=== PATIENT | female | born 2000 | race Two or more races ===

== ENCOUNTER 2025-04-30 10:45 | Observation (INO) | payer MEDICAID, SELFPAY ==
[2025-04-30] VITALS (11 sets, daily range): BP systolic 109–121; BP diastolic 56–65; PULSE 83–120; RESP 16–98; TEMP 37; BMI 37.5
[2025-04-30] MEDS: RINGERS LACTATED 1000 ML 1,000 ML 999 ML IV (11:40)
[2025-04-30 11:56] LABS: Collection Type, Urine Clean Catch
[2025-04-30 12:11] LABS: Basophils # (Auto) 0.0 Thou/mm3 (0.0-0.2); Basophils % (Auto) 1 % (0-2.5); Eosinophils # (Auto) 0.0 Thou/mm3 (0.0-0.5); Eosinophils % (Auto) 1 % (0-10); Hematocrit 35.1 % (36.0-46.0); Hemoglobin 11.6 g/dL (12.0-16.0); Immature Granulocytes Auto 0.03 Thou/mm3 (0.00-0.00); Lymphocytes # (Auto) 1.6 Thou/mm3 (1.0-4.8); Lymphocytes % (Auto) 27 % (10-50); Mean Corpuscular HGB Conc 33.0 g/dl (31.0-37.0); Mean Corpuscular Hemoglobin 27.9 pg (25.0-35.0); Mean Corpuscular Volume 84 fL (80-100); Monocytes # (Auto) 0.5 Thou/mm3 (0.0-0.8); Monocytes % (Auto) 8 % (0-12); Neutrophils # (Auto) 3.9 Thou/mm3 (1.8-7.7); Neutrophils % (Auto) 64 % (37-80); Nucleated Red Blood Cell # 0.00 Thou/mm3 (0.00-0.00); Nucleated Red Blood Cell % 0 /100 WBC (0); Platelet Count 271 Thou/mm3 (140-440); RDW Standard Deviation 42.0 fL (36.4-46.3); Red Blood Count 4.16 Miln/mm3 (4.00-5.20); White Blood Count 6.1 Thou/mm3 (3.6-11.0)
[2025-04-30 12:21] LABS: Bacteria,Urine Rare; Bilirubin,Urine Negative (Negative); Blood,Urine Negative (Negative); Clarity,Urine Clear (Clear/Hazy); Color,Urine Lt-Yellow (Lt Yel-Yel); Glucose, Urine Negative (Negative); Ketones,Urine Negative (Negative); Leukocyte Esterase,Urine Negative (Negative); Nitrite,Urine Negative (Negative); PH,Urine 6.5 (5.0-7.0); Protein,Urine Negative (Neg - Trace); RBC,Urine 1 /hpf (0-3); Specific Gravity,Urine 1.010 (1.001-1.035); Squamous Epithelial Cell,Urine 1 /hpf (0-5); Urobilinogen,Urine Negative mg/dL (0.0-1.0); WBC,Urine 1 /hpf (0-5)
[2025-04-30 12:23] LABS: Creatinine,Random Urine 52 mg/dL (30-125); Protein Total, Random Urine 12 mg/dL (1-14)
[2025-04-30 12:36] LABS: INR 0.9 (0.9-1.3); Partial Thromboplastin Time 26.7 Seconds (22.0-36.0); Prothrombin Time 10.1 Seconds (9.0-12.2)
[2025-04-30 12:38] LABS: Alanine Aminotransferase 25 U/L (10-49); Albumin, Serum 4.1 gm/dL (3.5-5.0); Albumin/Globulin Ratio 1.6 (1.2-2.2); Alkaline Phosphatase 166 U/L (46-116); Anion Gap 13 (7-16); Aspartate Amino Transferase 22 U/L (0-34); BUN/Creatinine Ratio 10 Ratio (12-20); Bilirubin,Total 0.4 mg/dL (0.3-1.2); Blood Urea Nitrogen 5 mg/dL (9-23); Calcium 8.8 mg/dL (8.3-10.6); Calcium (Corrected) 8.8 mg/dL (8.5-10.1); Carbon Dioxide 22.1 mMol/L (20.0-31.0); Chloride 105 mMol/L (98-107); Creatinine (Component) 0.5 mg/dL (0.6-1.3); Estimated Creatinine Clearance 182.6 mL/min (>60); Globulin 2.6 gm/dL (2.3-3.5); Glucose 87 mg/dL (74-106); LDH (Lactate Dehydrogenase) 171 U/L (120-246); Osmolality,Calculated 275 (275-295); Potassium 3.8 mMol/L (3.4-5.1); Sodium 140 mMol/L (136-145); Total Protein 6.7 gm/dL (5.7-8.2); Uric Acid 3.6 mg/dL (3.1-7.8); eGFR > 60 See Note
[2025-04-30 12:43] LABS: Fibrinogen 647 mg/dL (175-375)
== END 2025-04-30 13:33 | disposition home or self-care (01) ==
PROVIDERS: Admitting Provider Specialist; Visit Provider Specialist
DX: Z34.90 Encounter for supervision of normal pregnancy, unspecified, unspecified trimester (principal); Z36.89 Encounter for other specified antenatal screening; Z3A.00 Weeks of gestation of pregnancy not specified
CPT/HCPCS: 36415; 59025; 59899; 80053; 81001; 82570; 83615; 84156; 84550; 85025; 85384; 85610; 85730; J7120

== ENCOUNTER 2025-05-01 15:11 | Observation (INO) | payer MEDICAID, SELFPAY ==
[2025-05-01] VITALS (7 sets, daily range): BP systolic 111–114; BP diastolic 58–64; PULSE 94–231; RESP 16–98; TEMP 36.8; O2SAT 87; BMI 37.5
[2025-05-01 15:41] LABS: ROM Kit Lot # 58106258; ROM Swab Mixed By: ASTOA1; Swb Mxed in Solvent 1 min? Yes
[2025-05-01 15:43] LABS: Rupture of Fetal Membranes Negative (Negative)
[2025-05-01 16:19] LABS: Creatinine,Urine 41 mg/dL (30-125); Patient Height,Urine 62 Inches; Patient Weight,Urine 205 Pounds; Protein Total, Urine 10 mg/dL (1-14)
[2025-05-01 16:28] LABS: Collection Time,Urine 1525 Hours; Creatinine 24 Hour,Urine 1.1 gm/24hr (0.6-1.5); Protein Total, 24 hr Urine 280 mg/24hr (<149); Protein Total, Urine Volume 2800 mL/24hr (600-1800); Total Volume,Urine 2800 mL (600-1800)
== END 2025-05-01 16:45 | disposition home or self-care (01) ==
PROVIDERS: Admitting Provider Specialist; Visit Provider Specialist
DX: Z36.89 Encounter for other specified antenatal screening (principal); Z34.90 Encounter for supervision of normal pregnancy, unspecified, unspecified trimester; Z3A.00 Weeks of gestation of pregnancy not specified
CPT/HCPCS: 59025; 59899; 82575; 84112; 84156

== ENCOUNTER 2025-05-09 17:01 | Inpatient (IN) | payer MEDICAID, SELFPAY ==
[2025-05-09] VITALS (10 sets, daily range): BP systolic 113–130; BP diastolic 64–89; PULSE 82–106; RESP 16–97; TEMP 36.8–37; O2SAT 97–99; BMI 37.7; BMI 37.6
[2025-05-09 17:46] LABS: Collection Type, Urine Clean Catch
[2025-05-09 17:53] LABS: Basophils # (Auto) 0.0 Thou/mm3 (0.0-0.2); Basophils % (Auto) 0 % (0-2.5); Eosinophils # (Auto) 0.0 Thou/mm3 (0.0-0.5); Eosinophils % (Auto) 0 % (0-10); Hematocrit 37.0 % (36.0-46.0); Hemoglobin 12.2 g/dL (12.0-16.0); Immature Granulocytes Auto 0.04 Thou/mm3 (0.00-0.00); Lymphocytes # (Auto) 1.5 Thou/mm3 (1.0-4.8); Lymphocytes % (Auto) 22 % (10-50); Mean Corpuscular HGB Conc 33.0 g/dl (31.0-37.0); Mean Corpuscular Hemoglobin 27.4 pg (25.0-35.0); Mean Corpuscular Volume 83 fL (80-100); Monocytes # (Auto) 0.3 Thou/mm3 (0.0-0.8); Monocytes % (Auto) 5 % (0-12); Neutrophils # (Auto) 5.1 Thou/mm3 (1.8-7.7); Neutrophils % (Auto) 72 % (37-80); Nucleated Red Blood Cell # 0.00 Thou/mm3 (0.00-0.00); Nucleated Red Blood Cell % 0 /100 WBC (0); Platelet Count 286 Thou/mm3 (140-440); RDW Standard Deviation 40.8 fL (36.4-46.3); Red Blood Count 4.46 Miln/mm3 (4.00-5.20); White Blood Count 7.1 Thou/mm3 (3.6-11.0)
--- NOTE | 2025-05-09 17:56 | PD.LDHP ---
Documentation for date of: 05/09/25 OB Labor/Induct. HPI History of Present Illness Chief complaint: contractions : 2 Para: 1 Term pregnancies: 1 pregnancies: 0 Living children: 1 History of Abortions: Spontaneous and Elective: 0 History of Vaginal deliveries: 1 History of sections: No History of : No RYAN: 05/06/25 Gestational Age (weeks): 40 Gestational Age (days): 3 History of present illness: Patient presents for regular, painful ctx. No LOF. No vaginal bleeding. Normal movement. No fevers/chills. History of Present Dating criteria: LMP confirmed by 1st trimester US Adequate Care: Yes Ultrasounds: normal mid trimester US and other (normal growth scans) Narrative: Hx of 1 prior at term in 2021, proven to 7lb Current significant for: -PNC with Dr. Penny SENA, taking ASA. Early 24hr urine protein: 91 -Current BMI 37.7 Labs Maternal Blood Type: O Pos Labs: Positive: Rubella Titre and Negative: RPR, Hepatitis B, HIV, Chlamydia, Gonorrhea and Group Beta Strep Narrative: 1hr glucola 125 NIPT negative, XX msafp negative Review of Systems Review of Systems Narrative Review of Systems: Review of Systems Systems Reviewed: All systems reviewed, normal except as documented Constitutional Constitutional: Denies body ache(s), Denies chills, Denies fever(s) and Denies headache(s) ENT Ears, Nose, Mouth, and Throat: Denies headache(s) and Denies vertigo Cardiovascular Cardiovascular: Denies chest pain, Denies palpitations, Denies dyspnea and Denies syncope Respiratory Respiratory: Denies cough, Denies dyspnea Gastrointestinal Gastrointestinal: Denies nausea and Denies vomiting Neurologic Neurologic: Denies convulsions, Denies headache(s), Denies other visual disturbances, Denies syncope and Denies vertigo Past Medical History Family History OTHER FAMILY HX: non-contributory Surgical History SURGICAL: Negative Section Social History SOCIAL: No tobacco/ETOH/illicit drug use Past Medical History Comments PMH COMMENT: Current BMI 37.7 Meds Home Medications and Allergies Home Medications ?Medication ?Instructions ?Recorded ?Confirmed ?Type aspirin 81 mg tablet,delayed 81 mg PO Q8H 05/01/25 05/09/25 History release vits no.130-ferrous fum 1 tab PO QDAY 05/01/25 05/09/25 History 27 mg iron-folic acid 800 mcg tablet ( Vitamin) Allergies Allergy/AdvReac Type Severity Reaction Status Date / Time No Known Allergies Allergy Verified 05/09/25 17:54 OB Exam Physical Exam Vital signs: Pulse BP Pulse Ox 100 130/89 H 99 05/09/25 17:14 05/09/25 17:14 05/09/25 17:24 Narrative: General: well developed, well nourished, no acute distress, conversant Cardiac: normal heart rate Lungs: breathing without distress Abdomen: soft, gravid, non-tender, no rebound or guarding Extremities: trace edema BLE Detailed Labor and Delivery Exam Dilation (cm): 4 Effacement (%): 80 Cervix position: mid station: -2 Consistency: soft Presentation: Vertex Membranes: intact Baseline heart rate: 145 monitor accelerations: 15x15 monitor decelerations: None MCFP variability: Moderate (11-25) Contraction frequency (min): q5-7 OB Results Labs 05/09/25 17:30 05/09/25 17:30 OB Assessment & Plan Assessment and Plan (1) Active labor at term: Status: Acute Assessment and plan: Dalia is a 24yo with SIUP at 40&3wk presenting in active labor. Regular/painful contractions, SCE: 4/80/-2. Vitals wnl, benign exam. Reassuring assessment. PMhx/ significant for: -PNC with Dr. Francis -CLARY, taking ASA. Early 24hr urine protein: 91 -Current BMI 37.7 Plan: -Admit to L&D -Establish IV, routine labs incl. PIH labs -CEFM -Clear liquid diet -Cdl B Driver/consent re: -GBS status: negative -Anticipate -Safe to proceed (2) 40 weeks gestation of : Status: Acute (3) Obesity affecting in third trimester: Status: Acute (4) Hypertension affecting in third trimester: Status: Acute (3) Obesity affecting in third trimester Qualifiers: Obesity type affecting : unspecified obesity Qualified Code(s): O99.213 - Obesity complicating , third trimester
[2025-05-09 18:03] LABS: Bilirubin,Urine Negative (Negative); Blood,Urine 3+ (Negative); Clarity,Urine Clear (Clear/Hazy); Color,Urine Lt-Yellow (Lt Yel-Yel); Glucose, Urine Negative (Negative); Ketones,Urine Negative (Negative); Leukocyte Esterase,Urine Negative (Negative); Nitrite,Urine Negative (Negative); PH,Urine 7.0 (5.0-7.0); Protein,Urine Negative (Neg - Trace); RBC,Urine 30 /hpf (0-3); Specific Gravity,Urine 1.013 (1.001-1.035); Squamous Epithelial Cell,Urine 1 /hpf (0-5); Urobilinogen,Urine Negative mg/dL (0.0-1.0); WBC,Urine 1 /hpf (0-5)
[2025-05-09 18:07] LABS: Fibrinogen 592 mg/dL (175-375); INR 1.0 (0.9-1.3); Partial Thromboplastin Time 28.1 Seconds (22.0-36.0); Prothrombin Time 10.2 Seconds (9.0-12.2)
[2025-05-09 18:08] LABS: Alanine Aminotransferase 28 U/L (10-49); Albumin, Serum 4.0 gm/dL (3.5-5.0); Albumin/Globulin Ratio 1.5 (1.2-2.2); Alkaline Phosphatase 172 U/L (46-116); Anion Gap 12 (7-16); Aspartate Amino Transferase 21 U/L (0-34); BUN/Creatinine Ratio 14 Ratio (12-20); Bilirubin,Total 0.5 mg/dL (0.3-1.2); Blood Urea Nitrogen 7 mg/dL (9-23); Calcium 9.2 mg/dL (8.3-10.6); Calcium (Corrected) 9.2 mg/dL (8.5-10.1); Carbon Dioxide 20.7 mMol/L (20.0-31.0); Chloride 107 mMol/L (98-107); Creatinine (Component) 0.5 mg/dL (0.6-1.3); Creatinine,Random Urine 52 mg/dL (30-125); Estimated Creatinine Clearance 183.1 mL/min (>60); Globulin 2.6 gm/dL (2.3-3.5); Glucose 98 mg/dL (74-106); Osmolality,Calculated 277 (275-295); Potassium 3.8 mMol/L (3.4-5.1); Protein Total, Random Urine 23 mg/dL (1-14); Sodium 140 mMol/L (136-145); Total Protein 6.6 gm/dL (5.7-8.2); Uric Acid 3.9 mg/dL (3.1-7.8); eGFR > 60 See Note
[2025-05-09 18:26] LABS: Syphilis Nonreactive (Nonreactive)
[2025-05-10] VITALS (24 sets, daily range): BP systolic 99–167; BP diastolic 61–102; PULSE 78–108; RESP 16–18; TEMP 36.5–36.8; O2SAT 96–97
--- NOTE | 2025-05-10 03:01 | PD.LDPN ---
Documentation for date of: 05/10/25 OB Labor Progress Note Pelvic Exam Dilation (cm): 8 Effacement (%): 80 station: -1 Amniotic membrane status: Ruptured Contractions Monitor mode: External Contraction frequency: 2-5 Contraction intensity: Moderate Status status: Category l Assessment and Plan Comments: Intrapartum Note Patient doing well, breathing through ctx. Vitals wnl, afebrile Cat I FHRT SCE: 880/-1, AROM performed with clear fluid noted, well tolerated Plan to continue expectant management Closely monitor CEFM Safe to proceed Nabila Davis MD
[2025-05-10] MEDS: OXYTOCIN in NS 20 units 20 UNIT/1,000 ML BAG 999 UNIT IV (04:05)
[2025-05-10] MEDS: LIDOCAINE HCL 1% 20 ML VIAL INFL (04:07)
--- NOTE | 2025-05-10 04:36 | PD.LDDELS ---
Data (Sharma) Data Hx Section: No : 2 Term: 1 : 0 Livin Abortions: Spontaneous & Theraputic: 0 Delivery Data (Sharma) Labor Data Initiation of labor: Spontaneous Induction/Augmentation Agent: None ROM date: 05/10/25 ROM time: 02:57 Amniotic membrane rupture type: Artificial Amniotic fluid description: Clear Delivery Data Onset of labor date: 05/09/25 Onset of labor time: 14:30 Complete dilation date: 05/10/25 Complete dilation time: 03:54 delivery date: 05/10/25 delivery time: 04:05 Placenta delivery date: 05/10/25 Placenta delivery time: 04:12 Stage 1 total time: Labor - Stage 1 Duration 13 hours and 24 minutes Delivered by: Dr Davis Delivery nurse: Ericka Johsnon nurse: Ashli Anton Material Hauler at delivery: No Support person(s) at delivery: FOB and Mother Delivery Method Delivery method: Normal Vaginal Delivery Presentation: Vertex Anesthesia Type Anesthesia Type: Local Placenta Placenta delivery description: Spontaneous Cord blood sent to lab: Yes cord blood collection: Cord Blood Type Episiotomy Episiotomy description: None EBL Estimated blood loss (ml): 300 Umbilical Cord cord description: 3 Vessels Additional Procedures Dalia is a 24yo [id number] s/p uncomplicated at 40&4wk after presenting in active labor, delivering at 0405 on 05/10/2025. On presentation, SCE was 4/80/-2. She progressed without pitocin augmentation to C/C/0 at which point she began pushing. She declined epidural. With good maternal pushing efforts, infant's head delivered OA and restituted LAKSHMI. Left anterior shoulder delivered easily followed by posterior shoulder and corpus. Infant had spontaneous cry and was vigorous. Apgars 9/9. placed on maternal abdomen where nose/mouth were suctioned and infant dried/stimulated. After approximately 2 minutes, cord was clamped x2 and cut by FOB. Cord blood collected for typing. With fundal massage and cord traction, placenta delivered spontaneously and intact with 3 vessel centrally inserted cord (succenturiate lobe noted). Bimanual massage performed and IV pitocin given per protocol with fundus then firm at u-2cm and hemostasis noted. Inspection of perineum and vagina revealed a periurethral and a 1st degree midline laceration which were repaired in routine fashion with 4-0 vicryl, after anesthetizing with 1% lidocaine- total reapproximation and hemostasis achieved. Small trickle of blood, so sweep just within cervix/DELANO performed which retrieved a very small amount of clot. All counts correct x2. Mom and infant were doing well when I left the room. Nabila Davis MD Complications Complications: none [facility] ([facility]) [facility] order: 1 [facility] gender: Female Identification band number: [id number] 1 minute: 9 5 minutes: 9
[2025-05-10] MEDS: BENZO/LANO/ALOE (Dermoplast) 60 GM CAN 1 SPRAY TOP (04:56)
[2025-05-10] MEDS: IBUPROFEN TAB 400 MG TABLET 800 MG PO (08:52)
[2025-05-10] MEDS: PRENATAL VITAMIN/FE FUM/FA TABLET 1 TAB PO (08:52)
[2025-05-10] MEDS: DOCUSATE SOD 100 MG CAPSULE PO ×2 (08:52→21:20)
[2025-05-10 14:11] LABS: Basophils # (Auto) 0.0 Thou/mm3 (0.0-0.2); Basophils % (Auto) 0 % (0-2.5); Eosinophils # (Auto) 0.0 Thou/mm3 (0.0-0.5); Eosinophils % (Auto) 0 % (0-10); Hematocrit 32.4 % (36.0-46.0); Hemoglobin 10.6 g/dL (12.0-16.0); Immature Granulocytes Auto 0.05 Thou/mm3 (0.00-0.00); Lymphocytes # (Auto) 2.1 Thou/mm3 (1.0-4.8); Lymphocytes % (Auto) 18 % (10-50); Mean Corpuscular HGB Conc 32.7 g/dl (31.0-37.0); Mean Corpuscular Hemoglobin 27.6 pg (25.0-35.0); Mean Corpuscular Volume 84 fL (80-100); Monocytes # (Auto) 0.8 Thou/mm3 (0.0-0.8); Monocytes % (Auto) 6 % (0-12); Neutrophils # (Auto) 8.8 Thou/mm3 (1.8-7.7); Neutrophils % (Auto) 75 % (37-80); Nucleated Red Blood Cell # 0.00 Thou/mm3 (0.00-0.00); Nucleated Red Blood Cell % 0 /100 WBC (0); Platelet Count 256 Thou/mm3 (140-440); RDW Standard Deviation 42.2 fL (36.4-46.3); Red Blood Count 3.84 Miln/mm3 (4.00-5.20); White Blood Count 11.7 Thou/mm3 (3.6-11.0)
--- NOTE | 2025-05-11 06:51 | PD.LDDS ---
DS: Providers Provider Date of admission: 05/09/25 17:19 Primary care physician: Physician No Primary/Family Admitting Provider: Nabila Davis MD Attending Provider on Admission: Nabila Davis MD Consults: 05/10/25 04:34 Referral Routine Comment: Attending Provider on DC: Nabila Davis MD Discharging Provider: Nabila Davis MD DS: Diagnosis Discharge Diagnosis (1) care and examination immediately after delivery: Status: Acute (2) Hypertension affecting in third trimester: Status: Acute (3) Obesity affecting in third trimester: Status: Acute (4) 40 weeks gestation of : Status: Acute (5) Active labor at term: Status: Acute Problem List Completed Was Problem List Reviewed/Reconciled?: Yes Summary/Hosp Course Brief History: Dalia is a 24yo [id number] s/p uncomplicated at 40&4wk after presenting in active labor, delivering at 0405 on 05/10/2025. She has had an uncomplicated course, meeting all milestones and feels ready for discharge home. She is ambulating without lightheadedness, tolerating regular diet no n/v, spontaneously voiding without issue. She has no chest pain or shortness of breath. No fevers or chills. Minimal, appropriate discomfort. Vitals normal, benign exam. Hemodynamically stable with no evidence of infection. PP Hgb 10.6. Peripartum Data Delivery Method: Normal Vaginal Delivery Episiotomy Description: None Status at Discharge Functional status at discharge: independent ambulation Overall status at discharge: patient is back to baseline Time Spent with Patient Time attestation: Total time spent providing and/or coordinating discharge services: Exam Vital Signs Temp Pulse Resp BP Pulse Ox O2 Del Method 98.2 F 78 17 99/61 96 Room Air 05/10/25 23:44 05/10/25 23:44 05/10/25 23:44 05/10/25 23:44 05/10/25 23:44 05/10/25 23:44 Narrative Exam General: well developed, well nourished, no acute distress, conversant Cardiac: normal heart rate Lungs: breathing without distress Abdomen: soft, post-gravid, non-tender, no rebound or guarding, Fundus firm at u-3cm. Extremities: no pain with palpation of calves, trace edema of BLE Discharge Plan Plan Patient Disposition: HOME (Self Care) Patient condition on transfer: Stable Prescriptions/Referrals Prescriptions/Med Rec: New docusate sodium 100 mg Capsule 100 mg PO BID 10 Days Qty: 20 0RF ibuprofen 800 mg tablet 800 mg PO Q8H PRN (Reason: See Comments) 10 Days Qty: 20 0RF Continued Vitamin 27 mg iron- 800 mcg tablet 1 tab PO QDAY Discontinued aspirin 81 mg tablet,delayed release (DR/EC) 81 mg PO Q8H Patient Comments: Take 1 tablet by mouth once a day Referrals: No Primary/Family,Physician [Primary Care Provider] Patient/Caregiver Discharge Instructions Discharge Activity: activity as tolerated Other Discharge Activity Instructions:: vaginal rest and no heavy lifting more than 10 pounds for 6 weeks Other Discharge Diet Instructions: regular Education Materials: After a Vaginal Print Language: Estonian Activity Restrictions/Additional Instructions: follow up with Dr. Francis in 4 to 6 weeks for visit, call to schedule appt Stand Alone Forms: Brandee Award Info., Patient Portal Info Letter, Work/Release Restrictions Discharge Order Discharge Orders: Discharge (Routine); Ordered 05/11/25 Ordered By: Nabila Davis Planned Discharge Date 05/11/25 (3) Obesity affecting in third trimester Qualifiers: Obesity type affecting : unspecified obesity Qualified Code(s): O99.213 - Obesity complicating , third trimester
[2025-05-11 08:00] VITALS: BP 126/74; PULSE 78; RESP 17; TEMP 36.7
[2025-05-11] MEDS: DOCUSATE SOD 100 MG CAPSULE PO (08:45)
[2025-05-11] MEDS: PRENATAL VITAMIN/FE FUM/FA TABLET 1 TAB PO (08:45)
== END 2025-05-11 15:33 | disposition home or self-care (01) | DRG 560 ==
LOC: S4SX 19:15 → S4NX 05-10 10:40 → S4SX 05-10 11:53 → S4NX 05-10 11:53
PROVIDERS: Admitting Provider Obstetrics & Gynecology; Visit Provider Obstetrics & Gynecology
DX: O48.0 Post-term pregnancy (principal); O10.919 Unspecified pre-existing hypertension complicating pregnancy, unspecified trimester; O99.214 Obesity complicating childbirth; Z37.0 Single live birth; Z3A.40 40 weeks gestation of pregnancy; O70.0 First degree perineal laceration during delivery
CPT/HCPCS: 36415; 59025; 80053; 81001; 82570; 84156; 84550; 85025; 85384; 85610; 85730; 86780; 86850; 86900; 86901; J2590; J3490; A9270